=== PATIENT | female | born 1935 | race Caucasian/White ===

== ENCOUNTER 2016-09-15 23:59 | Emergency (ER) | payer OTHER ==
[~2016-09-15] VITALS: Ht 152.4 cm; Wt 45.9 kg
[~2016-09-15 23:59] MED LIST: AMITRIPTYLINE H25 MG PO; ASPIR-LOW81 MG PO; ASPIRIN EC325 MG PO; ATORVASTATIN CA20 MG PO; AUGMENTIN875 MG PO; BACLOFEN10 MG; BACLOFEN10 MG PO; BACTRIM,SEPT1 TABLET PO; BUMETANIDE0.5 MG PO; CAL-MAG TABLET1 EACH PO; CALCIUM 600 +1 EAC1 PO; CEFUROXIME500 MG PO; CETIRIZINE HCL10 M1 PO; CIPRO500 MG PO; CIPRO750 MG PO; CLARITIN,ALAVAR10 MG PO; CLONAZEPAM0.5 MG PO; DOMP10T PO; DOXYCYCLINE HY100 MG PO; ELAVIL10 MG PO; ELAVIL25 MG PO; ERGOCALCIF50000 UNIT PO; EXTRA STRENGTH500 M1 PO; FLONASE16 G1 BOTH NARES; FLUTICASONE PRO16 GM; HYDROCHLOROTH12.5 M3 PO; HYDROCHLOROTHIA25 MG PO; HYDROCHLOROTHIA50 MG PO; IMDUR60 MG PO; ISOSORBIDE MONO60 MG PO; K-DUR10 MEQ PO; K-TAB10 MEQ PO; KEFLEX500 MG PO; KLONOPIN0.5 M1 PO; KLOR-CON M2020 MEQ PO; LEVOTHYROXINE100 MCG PO; LEVOTHYROXINE112 MCG PO; LEVOTHYROXINE88 MCG PO; LIORESAL10 MG PO; LIPITOR20 MG PO; LITE COAT ASPI325 M1 PO; LO-DOSE ASPIRIN81 M1 PO; LOPRESSOR25 MG PO; MACROBID100 MG PO; METOPROLOL SUCC25 MG PO; METOPROLOL TART25 MG PO; METRO CREAM 0.745 GM TP; METRO PO; MICRO-K10 ME2 PO; MILK OF MAGN PO; MIRALAX255 GM PO; MISOPROSTOL200 MCG PO; MORPHINE; MUPIROCIN1 GM TP; MYRBETRIQ25 MG PO; MYRBETRIQ50 MG PO; NABI650T PO; NITROFURANTOIN100 M3; NITROFURANTOIN100 MG PO; NITROSTAT0.4 MG SL; OMEPRAZOLE20 MG PO; OMEPRAZOLE40 M1 PO; OXYCODONE HCL30 MG PO; PAXIL10 MG PO; PAXIL20 MG PO; PEPCID40 MG PO; PHENAZOPYRIDIN200 MG PO; PLAVIX75 MG PO; POTASSIUM CHLO20 ME2 PO; POTASSIUM CL ER 10 M PO; PRILOSEC20 MG PO; PROLIA60 MG/1 ML SC; PROSED-DS1 TABLET PO; RELISTOR8 MG/0.4 M SC; RISPERDAL1 MG PO; ROPINIROLE HCL1 MG PO; SALINE NASAL M126 ML BOTH NARES; SENNA8.6 MG PO; SENOKOT S,PE1 TABLET PO; SEROQUEL12.5 MG PO; ST. JOSEPH ASPI81 MG PO; SYNTHROID88 MCG PO; TRAZODONE HCL50 MG PO; TUMS500 MG PO; TYLENOL EXTRA500 MG PO; TYLENOL REGULA325 MG PO; WESTCORT 0.2% C15 GM TP; potassium PO
[2016-09-16 03:48] VITALS: BP 136/60
== END 2016-09-16 03:50 | disposition home or self-care (01) ==
LOC: EME 23:59
DX: S00.93XA Contusion of unspecified part of head, initial encounter (principal); M54.9 Dorsalgia, unspecified; W06.XXXA Fall from bed, initial encounter; Y92.129 Unspecified place in nursing home as the place of occurrence of the external cause; F03.90 Unspecified dementia, unspecified severity, without behavioral disturbance, psychotic disturbance, mood disturbance, and anxiety; K21.9 Gastro-esophageal reflux disease without esophagitis; I25.10 Atherosclerotic heart disease of native coronary artery without angina pectoris; E03.9 Hypothyroidism, unspecified; E78.5 Hyperlipidemia, unspecified; Z79.82 Long term (current) use of aspirin; Z79.891 Long term (current) use of opiate analgesic; Z87.891 Personal history of nicotine dependence
CPT/HCPCS: 70450; 72100; 72125; 99281; 99285

== ENCOUNTER 2016-12-20 21:29 | Emergency (ER) | payer OTHER ==
[~2016-12-20] VITALS: Ht 157.5 cm; Wt 36.6 kg
[2016-12-20 23:31] LABS: EOSINOPHIL (%) 0 % (0-5); HEMATOCRIT 36.7 % (36.0-46.0); IMMATURE GRANULOCYTE (%) 0.5 % (0.0-0.7); INSTRUMENT ABS NEUTROPHIL CT 7.2 K/uL; LYMPHOCYTE COUNT 0.4 K/uL (1.0-2.8); MCHC 32.2 G/DL (30.0-36.0); MCV 96.3 FL (83-99); MEAN PLAT.VOLUME 9.6 uM^3 (9.5-12.4); MONOCYTE (%) 6.2 % (3-12); MONOCYTE COUNT 0.5 K/uL (0-0.8); NEUTROPHIL (%) 88.5 % (45-76); NEUTROPHIL COUNT 7.2 K/uL (1.8-6.4); PLATELET COUNT 195 K/uL (156-360); RBC DIS.WIDTH-CV 12.8 % (11.8-14.6); RBC DIS.WIDTH-SD 45.2 % (39-53); RED BLOOD COUNT 3.81 M/uL (3.80-5.20); WHITE BLOOD COUNT 8.1 K/uL (4.1-10.2)
[2016-12-20 23:44] LABS: CHLORIDE 102 mEq/L (99-109); POTASSIUM 3.7 mEq/L (3.7-5.4); SODIUM 138 mEq/L (136-147)
[2016-12-20 23:45] LABS: MAGNESIUM 1.9 mg/dL (1.3-2.7)
[2016-12-20 23:47] LABS: GLUCOSE 107 mg/dL (70-99)
[2016-12-20 23:48] LABS: ANION GAP 10 MEQ/L (2-14); TOTAL BILIRUBIN 0.9 mg/dL (0.0-1.0)
[2016-12-20 23:50] LABS: ALKALINE PHOSPHATASE 114 IU/L (3-129); GFR ESTIMATE (CALCULATED) > 59 mL/min/
[2016-12-20 23:51] LABS: UREA NITROGEN (BUN) 22 mg/dL (9-23)
[2016-12-21 00:14] LABS: ADD MIUA? YES; BILIRUBIN NEGATIVE; BLOOD SMALL; COLOR YELLOW ((YELLOW)); GLUCOSE (STRIP) NEGATIVE; KETONES NEGATIVE; LEUKOCYTES NEGATIVE; NITRITE NEGATIVE; PROTEIN (STRIP) NEGATIVE; SPECIFIC GRAVITY 1.016 (1.000-1.030); UROBILINOGEN 0.2 MG/DL (0.2-1.0)
[2016-12-21 00:19] LABS: BACTERIA NONE SEEN /HPF; EPITHELIAL CELLS NONE SEEN /HPF; MUCUS NONE SEEN /LPF; UCUL ADDED? NO; WHITE BLOOD CELLS NONE SEEN /HPF (0-5)
[2016-12-21 04:43] VITALS: BP 110/55
== END 2016-12-21 04:44 | disposition short-term general hospital (02) ==
LOC: EME 21:29
PROVIDERS: Emergency Medicine
DX: T85.738A Infection and inflammatory reaction due to other nervous system device, implant or graft, initial encounter (principal); Y84.8 Other medical procedures as the cause of abnormal reaction of the patient, or of later complication, without mention of misadventure at the time of the procedure; F03.90 Unspecified dementia, unspecified severity, without behavioral disturbance, psychotic disturbance, mood disturbance, and anxiety; E78.5 Hyperlipidemia, unspecified; K21.9 Gastro-esophageal reflux disease without esophagitis; M79.7 Fibromyalgia; F41.9 Anxiety disorder, unspecified; E03.9 Hypothyroidism, unspecified; Z88.8 Allergy status to other drugs, medicaments and biological substances; Z87.891 Personal history of nicotine dependence
CPT/HCPCS: 80053; 81003; 83605; 83735; 84443; 85025; 87040; 87070; 87075; 87077; 87147; 87186; 87205; 93005; 99281; 99285; J2270; J3370; J7040; J7050

== ENCOUNTER 2017-09-30 20:47 | Emergency (ER) | payer OTHER ==
[~2017-09-30] VITALS: Ht 157.5 cm; Wt 48.8 kg
[2017-09-30 21:33] LABS: BASOPHIL (%) 0.4 % (0-1); EOSINOPHIL (%) 1.6 % (0-5); EOSINOPHIL COUNT 0.1 K/uL (0-0.3); HEMATOCRIT 37.5 % (36.0-46.0); HEMOGLOBIN 12.6 G/DL (11.9-15.5); IMMATURE GRANULOCYTE (%) 0.8 % (0.0-0.7); LYMPHOCYTE (%) 21.7 % (15-42); LYMPHOCYTE COUNT 1.8 K/uL (1.0-2.8); MCH 32.6 PG (29.0-34.0); MCHC 33.6 G/DL (30.0-36.0); MCV 97.2 FL (83-99); MONOCYTE (%) 9.7 % (3-12); MONOCYTE COUNT 0.8 K/uL (0-0.8); NEUTROPHIL (%) 65.8 % (45-76); NEUTROPHIL COUNT 5.5 K/uL (1.8-6.4); PLATELET COUNT 206 K/uL (156-360); RBC DIS.WIDTH-CV 12.7 % (11.8-14.6); RBC DIS.WIDTH-SD 45.5 % (39-53); RED BLOOD COUNT 3.86 M/uL (3.80-5.20); WHITE BLOOD COUNT 8.3 K/uL (4.1-10.2)
[2017-09-30 21:44] LABS: CHLORIDE 109 mEq/L (99-109); POTASSIUM 3.8 mEq/L (3.7-5.4); SODIUM 141 mEq/L (136-147)
[2017-09-30 21:45] LABS: GLUCOSE 143 mg/dL (70-99)
[2017-09-30 21:49] LABS: GFR ESTIMATE (CALCULATED) 56 mL/min/
[2017-09-30 21:50] LABS: UREA NITROGEN (BUN) 20 mg/dL (9-23)
[2017-09-30 22:00] VITALS: BP 149/75
== END 2017-09-30 23:34 | disposition home or self-care (01) ==
LOC: EME 20:47
PROVIDERS: Emergency Medicine
DX: F41.9 Anxiety disorder, unspecified (principal); F03.90 Unspecified dementia, unspecified severity, without behavioral disturbance, psychotic disturbance, mood disturbance, and anxiety; F31.9 Bipolar disorder, unspecified; I25.10 Atherosclerotic heart disease of native coronary artery without angina pectoris; K21.9 Gastro-esophageal reflux disease without esophagitis; M79.7 Fibromyalgia; E03.9 Hypothyroidism, unspecified; E78.5 Hyperlipidemia, unspecified; M85.80 Other specified disorders of bone density and structure, unspecified site; Z87.891 Personal history of nicotine dependence; Z87.440 Personal history of urinary (tract) infections; Z79.82 Long term (current) use of aspirin; Z88.8 Allergy status to other drugs, medicaments and biological substances
CPT/HCPCS: 80048; 81003; 85025; 90839; 99281; 99285